=== PATIENT | male | born 1975 | race Caucasian/White ===

== ENCOUNTER 2018-02-04 04:14 | Emergency (ER) | payer SELFPAY ==
[~2018-02-04] VITALS: Ht 172.7 cm; Wt 63.5 kg
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
--- NOTE | 2018-02-04 04:22 | NUR ---
POLICE AT BEDSIDE TO SEE PT.
--- NOTE | 2018-02-04 04:43 | NUR ---
ADDITIONAL [employer] AT BEDSIDE.
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
--- NOTE | 2018-02-04 05:11 | NUR ---
PT BACK FROM CT SCAN. 2 POLICE OFFICERS AT BEDSIDE.
[2018-02-04] MEDS ORDERED: HYDROCODONE/APAP 5-325MG TABLET ONE (05:43)
[2018-02-04] MEDS ORDERED: HYDROCODONE/APAP 5-325MG TABLET PO ONE (05:45)
--- NOTE | 2018-02-04 05:56 | NUR ---
DISCHARGE INSTRUCTIONS PROVIDED. PT VERBALIZES UNDERSTANDING BUT REFUSES TO LEAVE AND SIGN PAPERWORK. BEING UNCOOPERATIVE.
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
[2018-02-04 06:22] VITALS: BP 116/77
--- NOTE | 2018-02-04 14:13 | NUR ---
Engineer Remote Control Diesel called by Tube Laser Operator Levon, to assist with discharge. SW met with patient who was in the emergency room waiting room. ocean lifeguard specialist Norm also present due to patient's behavior earlier today (see previous notes). Patient has been discharged earlier today, however refusing to leave. Patient asked SW to call his parents to come pick him up. Patient requested to have some water, and a cup of water was provided to the patient. SW called patient's father Terrell, , and asked if he would be able to come clam picker the patient. Terrell agreed, and ABIM[place]OLA provided Terrell with the address to the hospital and directions on how to get to the hospital from [place] (father lives in [place]). Patient's father Terrell stated that he would come to clam picker his son in about 1 hour. SW informed patient, and patient responded "ok". ED staff informed of above. No other interventions needed at this time.
== END 2018-02-04 06:22 | disposition home or self-care (01) ==
LOC: ER 04:21
DX: S02.2XXA Fracture of nasal bones, initial encounter for closed fracture (principal); S00.83XA Contusion of other part of head, initial encounter; F12.10 Cannabis abuse, uncomplicated; F17.200 Nicotine dependence, unspecified, uncomplicated; Z59.0 Homelessness; W22.8XXA Striking against or struck by other objects, initial encounter
CPT/HCPCS: 70486; 72125; 99284; A4663